=== PATIENT | male | born 1965 | race Caucasian/White ===

== ENCOUNTER 2020-05-26 10:33 | Emergency (ER) | payer OTHER ==
[2020-05-26 10:38] VITALS: RESP 18
[2020-05-26] MEDS ORDERED: SODIUM CHLORIDE 0.9% 1,000 ML IV STA (10:57)
[2020-05-26] MEDS ORDERED: ONDANSETRON 4 MG/2 ML VIAL IVP STA (10:57)
[2020-05-26] MEDS ORDERED: MORPHINE SULFATE 4 MG/ML SYRINGE IVP STA (10:58)
--- NOTE | 2020-05-26 11:01 | ED ---
Abdominal Pain HPI - General Chief Complaint: Abdominal Pain Stated Complaint: Kidney stone Time Seen by Provider: 05/26/20 10:39 Source: patient Mode of arrival: ambulatory Limitations: no limitations - History of Present Illness Initial Comments: Patient is a 54-year-old male presenting to the emergency Department with complaints of left flank pain that started yesterday evening. Patient states he has an extensive history of kidney stones and this feels similar. He has not had a stone approximately one year. He states he was trying to let it pass on its own however he was out eating breakfast this morning and started having vomiting episode secondary to pain. He denies any fever or chills. He admits to history of umbilical hernia repair, no other abdominal surgeries. He does admit to some mild hematuria. Patient currently lives in [place], he is visiting family in the area. He does see a urologist in the [place] area. He has no further complaints at this time. Upon arrival to the ER, his vital signs are stable. - Related Data Home Medications Medication Instructions Recorded Confirmed Testosterone Cypionate 200 mg IM FR 05/11/19 05/26/20 [Depo-Testosterone] Aspirin EC [Ecotrin Low Dose] 81 mg PO HS 05/26/20 05/26/20 Atorvastatin Calcium [Lipitor] 80 mg PO HS 05/26/20 05/26/20 Metoprolol Succinate (ER) [Toprol 100 mg PO HS 05/26/20 05/26/20 Xl] lisinopriL [Zestril] 2.5 mg PO HS 05/26/20 05/26/20 Previous Rx's Medication Instructions Recorded Hydrocodone/Acetaminophen [[place] 1 tab PO Q6HR PRN #10 tab 05/26/20 5-325] Ondansetron Odt [Zofran Odt] 4 mg PO Q8HR PRN #10 tab 05/26/20 Tamsulosin [Flomax] 0.4 mg PO DAILY #7 cap 05/26/20 Allergies Allergy/AdvReac Type Severity Reaction Status Date / Time ibuprofen [From Motrin] Allergy Anaphylaxis Verified 05/26/20 11:48 Iodinated Contrast Media Allergy Swelling Verified 05/26/20 11:48 [Iodinated Contrast- Oral and IV Dye] ketorolac [From Toradol] Allergy Anaphylaxis Verified 05/26/20 11:48 NSAIDS (Non-Steroidal Allergy Unknown Verified 05/26/20 11:48 Anti-Inflamma Penicillins Allergy Rash/Hives Verified 05/26/20 11:48 shellfish derived [Shrimp] Allergy Itching Verified 05/26/20 11:48 GROUND BEANS Allergy Rash/Hives Uncoded 05/26/20 11:48 Review of Systems ROS Statement: Those systems with pertinent positive or pertinent negative responses have been documented in the HPI. ROS Other: All systems not noted in ROS Statement are negative. Past Medical History Past Medical History: Myocardial Infarction ([place]) Additional Past Medical History / Comment(s): kidney stones History of Any Multi-Drug Resistant Organisms: None Reported Past Surgical History: Orthopedic Surgery Additional Past Surgical History / Comment(s): 7 spinal fusions, multiple lithotripsy Past Psychological History: No Psychological Hx Reported Smoking Status: Never smoker Past Alcohol Use History: Rare Past Drug Use History: None Reported General Exam - General Exam Comments Initial Comments: GENERAL: Patient is well-developed and well-nourished. Patient is nontoxic and in no acute distress. HEAD: Atraumatic, normocephalic. EYES: Pupils equal round and reactive to light, extraocular movements intact, sclera anicteric, conjunctiva are normal. Eyelids were unremarkable. ENT: TMs normal, nares patent, oropharynx clear without exudates. Moist mucous membranes. NECK: Normal range of motion, supple without lymphadenopathy or JVD. LUNGS: Unlabored respirations. Breath sounds clear to auscultation bilaterally and equal. No wheezes rales or rhonchi. HEART: Regular rate and rhythm without murmurs, rubs or gallops. ABDOMEN: Left-sided abdominal pain with palpation. Soft, normoactive bowel sounds. No guarding, no rebound. No masses appreciated. : Deferred MUSCULOSKELETAL: Normal extremities with adequate strength and normal range of motion, no pitting or edema. No clubbing or cyanosis. NEUROLOGICAL: Patient is alert and oriented x 3. Normal speech, normal gait. PSYCH: Normal mood, normal affect. SKIN: Warm, Dry, normal turgor, no rashes or lesions noted. Limitations: no limitations Course Vital Signs 05/26/20 05/26/20 10:34 13:02 Temperature 98 F 97.6 F Pulse Rate 77 71 Respiratory 18 18 Rate Blood Pressure 159/92 133/83 O2 Sat by Pulse 97 96 Oximetry Medical Decision Making - Medical Decision Making Patient is a 54-year-old male here for left sided abdominal pain. He has an extensive history of kidney stones and this feels similar. His vital signs are stable. Laboratory shows slight leukocytosis of 11.9, likely reactive, liver enzymes are elevated, kidney function is stable. Urine shows a large amount of blood, rbc's. Computed tomography scan shows left-sided nephrolithiasis up to 8 mm, no ureteral stones seen. There appears to be a large stone in the bladder. Patient has received pain control meds, Zofran, he's been resting completely the ER. Patient then started having increase in pain. I discussed these findings with the patient. The patient will be discharged home with Flomax, pain control as well as Zofran for her symptoms. He is in agreement with this plan of care. He'll follow-up with his urologist when he gets back home. Return parameters were discussed with the patient and he verbalized understanding. Case discussed with Dr. Louise. - Lab Data Result diagrams: 05/26/20 11:20 05/26/20 11:20 Lab Results 05/26/20 05/26/20 05/26/20 Range/Units 11:20 11:20 11:20 WBC 11.9 H (3.8-10.6) k/uL RBC 5.76 (4.30-5.90) m/uL Hgb 16.0 (13.0-17.5) gm/dL Hct 51.4 (39.0-53.0) % MCV 89.2 (80.0-100.0) fL MCH 27.8 (25.0-35.0) pg MCHC 31.1 (31.0-37.0) g/dL RDW 15.9 H (11.5-15.5) % Plt Count 212 (150-450) k/uL Neutrophils % 69 % Lymphocytes % 17 % Monocytes % 10 % Eosinophils % 3 % Basophils % 0 % Neutrophils # 8.2 H (1.3-7.7) k/uL Lymphocytes # 2.0 (1.0-4.8) k/uL Monocytes # 1.1 H (0-1.0) k/uL Eosinophils # 0.3 (0-0.7) k/uL Basophils # 0.0 (0-0.2) k/uL Sodium 135 L (137-145) mmol/L Potassium 4.4 (3.5-5.1) mmol/L Chloride 106 (98-107) mmol/L Carbon Dioxide 25 (22-30) mmol/L Anion Gap 4 mmol/L BUN 17 (9-20) mg/dL Creatinine 1.02 (0.66-1.25) mg/dL Est GFR (CKD-EPI)AfAm >90 (>60 ml/min/1.73 sqM) Est GFR (CKD-EPI)NonAf 84 (>60 ml/min/1.73 sqM) Glucose 82 (74-99) mg/dL Calcium 8.9 (8.4-10.2) mg/dL Total Bilirubin 1.0 (0.2-1.3) mg/dL AST 101 H (17-59) U/L ALT 187 H (4-49) U/L Alkaline Phosphatase 92 (38-126) U/L Total Protein 6.3 (6.3-8.2) g/dL Albumin 3.6 (3.5-5.0) g/dL Lipase 235 (23-300) U/L Urine Color Yellow Urine Appearance Clear (Clear) Urine pH 6.5 (5.0-8.0) Ur Specific [place] 1.027 (1.001-1.035) Urine Protein Trace H (Negative) Urine Glucose (UA) Negative (Negative) Urine Ketones Trace H (Negative) Urine Blood Large H (Negative) Urine Nitrite Negative (Negative) Urine Bilirubin Negative (Negative) Urine Urobilinogen 3.0 (<2.0) mg/dL Ur Leukocyte Esterase Trace H (Negative) Urine RBC >182 H (0-5) /hpf Urine WBC 2 (0-5) /hpf Ur Squamous Epith Cells <1 (0-4) /hpf Urine Mucus Rare H (None) /hpf Disposition Clinical Impression: Left flank pain, Kidney stones Disposition: HOME SELF-CARE Condition: Stable Instructions (If sedation given, give patient instructions): Kidney Stones (ED) Additional Instructions: Please return to the Emergency Department if symptoms worsen or any other concerns. Follow up with urologist when return home. Use medications as prescribed. Prescriptions: Tamsulosin [Flomax] 0.4 mg PO DAILY #7 cap Hydrocodone/Acetaminophen [[place] 5-325] 1 tab PO Q6HR PRN #10 tab PRN Reason: Pain Ondansetron Odt [Zofran Odt] 4 mg PO Q8HR PRN #10 tab PRN Reason: Nausea Is patient prescribed a controlled substance at d/c from ED?: Yes When asked, does pt state using other controlled substances?: No If prescribed controlled substance>3 days was MAPS reviewed?: Prescribed <3 Days If opioid is for acute pain is fill amount 7 days or less?: Yes If Rx opioid, was Start Talking consent form obtained?: Yes Referrals: Gee Roblero DO [Primary Care Provider] - 1-2 days
[2020-05-26 11:36] LABS: Basophils % (A) 0 %; Eosinophils # (A) 0.3 k/uL (0-0.7); Eosinophils % (A) 3 %; HCT 51.4 % (39.0-53.0); Lymphocytes % (A) 17 %; MCH 27.8 pg (25.0-35.0); MCHC 31.1 g/dL (31.0-37.0); MCV 89.2 fL (80.0-100.0); Mean Platelet Volume 8.1; Monocytes # (A) 1.1 k/uL (0-1.0); Monocytes % (A) 10 %; Neutrophils # (A) 8.2 k/uL (1.3-7.7); Neutrophils % (A) 69 %; Platelet Count 212 k/uL (150-450); RBC 5.76 m/uL (4.30-5.90); RDW 15.9 % (11.5-15.5); WBC 11.9 k/uL (3.8-10.6)
[2020-05-26 11:48] LABS: ALT 187 U/L (4-49); AST 101 U/L (17-59); African American GFR (CKD) >90 (>60 ml/min/1.73 sqM); Albumin 3.6 g/dL (3.5-5.0); Alkaline Phosphatase 92 U/L (38-126); Anion Gap 4 mmol/L; Blood Urea Nitrogen 17 mg/dL (9-20); Calcium 8.9 mg/dL (8.4-10.2); Carbon Dioxide 25 mmol/L (22-30); Chloride 106 mmol/L (98-107); Glucose 82 mg/dL (74-99); Non-African American GFR(CKD) 84 (>60 ml/min/1.73 sqM); Potassium 4.4 mmol/L (3.5-5.1); Sodium 135 mmol/L (137-145); Total Protein 6.3 g/dL (6.3-8.2)
[2020-05-26 11:54] LABS: Appearance,Urine Clear (Clear); Bilirubin,Urine Negative (Negative); Blood,Urine Large (Negative); Color,Urine Yellow; Glucose,Urine (UA) Negative (Negative); Ketones,Urine Trace (Negative); Leukocyte Esterase,Urine Trace (Negative); Mucus,Urine Rare /hpf; Nitrite,Urine Negative (Negative); PH, Urine 6.5 (5.0-8.0); Protein,Urine Trace (Negative); RBC,Urine >182 /hpf (0-5); Specific Gravity,Urine 1.027 (1.001-1.035); Squamous Epithelial Cell,Urine <1 /hpf (0-4); WBC,Urine 2 /hpf (0-5)
[2020-05-26] MEDS ORDERED: MORPHINE SULFATE 2 MG/ML SYRINGE IVP ONE (12:27)
--- NOTE | 2020-05-26 12:27 | CT ---
EXAMINATION TYPE: CT abdomen pelvis wo con DATE OF EXAM: 05/26/2020 COMPARISON: None HISTORY: 54-year-old male Lt flank pain, history of stones CT DLP: 1040.4 mGycm. Automated exposure control for dose reduction was used. TECHNIQUE: Contiguous axial scanning of the abdomen and pelvis without IV contrast. Coronal and sagit maría elena reconstructions performed. FINDINGS: Heart upper limits of normal in size without pericardial effusion. Patchy groundglass and lower lungs could represent areas of air-trapping or generalized atelectasis. Tiny hiatal hernia. Liver mildly enlarged 18.3 cm. Spleen mildly enlarged at 14.0 cm. Gallbladder, adrenal glands, and pancreas appear within normal limits. Right kidney shows no gross abnormality. Numerous left-sided renal calculi measuring up to 8 mm. Left kidney is relatively smaller. No hydrone phrosis or ureteral calculus seen. No dilated small bowel, free fluid, free air. Normal appendix. Mild overall stool burden. Mildly redundant sigmoid colon. No pericolonic inflammato ry change. Bladder partially distended. Multiple pelvic phleboliths and some central prostatic calcifications. T here appears to be a high riding right testicle located just outside of the superficial inguinal ring . Bones: Post surgical change of L3-S1 posterior and interbody fusion as well as lateral osseous fusion . Some endplate spondylosis lower thoracic spine. IMPRESSION: 1. Left-sided nephrolithiasis measuring up to 8 mm. No ureteral stone or hydronephrosis seen. 2. Asymmetric atrophy of the left kidney. If indicated, a nuclear medicine MAG3 renal scan can asses s split kidney function. 3. Mild hepatosplenomegaly (liver 18.3 cm and spleen 14.0 cm).
[2020-05-26 13:04] VITALS: BP 133/83; PULSE 71; TEMP 97.6
== END 2020-05-26 13:04 | disposition home or self-care (01) ==
LOC: MERGE 10:33 → EC 10:33
DX: N20.0 Calculus of kidney (principal); I25.2 Old myocardial infarction; Z79.82 Long term (current) use of aspirin; Z88.0 Allergy status to penicillin; Z88.6 Allergy status to analgesic agent; Z91.041 Radiographic dye allergy status; Z91.018 Allergy to other foods; Z98.1 Arthrodesis status
CPT/HCPCS: 36415; 80053; 83690; 85025; 81001; 74176; 99284; 96374; 96375; 96376; 96361; J2270 ×2; J2405